=== PATIENT | female | born 1970 | race Caucasian/White ===

== ENCOUNTER 2020-03-07 02:12 | Emergency (ER) | payer BC ==
[~2020-03-07] VITALS: Ht 160 cm; Wt 55.9 kg
[~2020-03-07 02:12] MED LIST: LYRICA150 MG OR; SKELAXIN800 MG OR
[2020-03-07] MEDS ORDERED: PERCOCET1 TA4 PO (02:55)
[2020-03-07] MEDS ORDERED: MORPHINE SUL30 M3 PO (02:55)
[2020-03-07] MEDS ORDERED: AMITRIPTYLIN25 MG PO (02:56)
[2020-03-07 04:30] VITALS: BP 132/77
== END 2020-03-07 07:33 | disposition home or self-care (01) | DRG 918 ==
LOC: ED 02:12
DX: T50.7X1A Poisoning by analeptics and opioid receptor antagonists, accidental (unintentional), initial encounter (principal); R10.33 Periumbilical pain; R11.2 Nausea with vomiting, unspecified; G89.4 Chronic pain syndrome
CPT/HCPCS: J2060